=== PATIENT | male | born 1965 | race African-American/Black ===

== ENCOUNTER 2022-12-05 16:09 | Emergency (ER) | payer OTHER ==
[~2022-12-05] VITALS: Ht 182.9 cm; Wt 73.9 kg
[2022-12-05 16:42] VITALS: BP 103/77
[2022-12-05 16:46] LABS: BASO% 0.7 % (0-3); HEMATOCRIT 41.5 % (39.0-50.0); HEMOGLOBIN 12.9 g/dl (14.0-18.0); IMMATURE GRANULOCYTES 0.2 % (0.0-5.0); MEAN CELL VOLUME 85.4 fL CALC (80.0-100.0); MEAN CORPUSCULAR HGB 26.5 pG CALC (26.0-32.0); MEAN CORPUSCULAR HGB CONC 31.1 g/dL CAL (32.0-36.0); MONO% 6.6 % (2-13); NEUT# 2.31 thou/uL (1.82-7.42); NEUT% 50.5 % (42-76); RED BLOOD COUNT 4.86 mill/uL (4.70-6.10); RED CELL DISTRI WIDTH 12.2 % (11.5-15.5)
[2022-12-05 16:55] LABS: ALBUMIN 4.2 g/dL (3.2-5.0); ALKALINE PHOSPHATASE 77 u/l (38-126); BUN 11 mg/dL (9-20); BUN/CREATININE RATIO 11 (12-20 (CALC)); CHLORIDE 108 mmol/l (95-108); ETHYL ALCOHOL 88 mg/dl (0-30); GFR FOR AFR.AMER. > 60 ML/MIN (>=60 (CALC)); GFR OTHER RACES > 60 ML/MIN (>=60 (CALC)); POTASSIUM 3.6 mmol/l (3.5-5.1); SGOT/AST 52 u/l (17-59); SODIUM 141 mmol/l (137-146); TOTAL PROTEIN 6.8 g/dL (6.3-8.2)
[2022-12-05 16:57] LABS: ANION GAP 20 (6-22 (CALC)); BILIRUBIN, TOTAL 0.2 mg/dL (0.2-1.3); CARBON DIOXIDE 17 mmol/l (22-30)
[2022-12-05 17:19] VITALS: BP 106/69
[2022-12-05] MEDS ORDERED: CEPHALEXIN500 MG PO (17:28)
[2022-12-05 17:30] VITALS: BP 116/73
[2022-12-05 17:46] VITALS: BP 121/84
[2022-12-05 18:02] VITALS: BP 121/84
== END 2022-12-05 18:18 | disposition home or self-care (01) | DRG 605 ==
LOC: ED 16:09
PROVIDERS: Family Medicine
PROC: 0HQEXZZ Repair Left Lower Arm Skin, External Approach (ICD-10-PCS; principal; 2022-12-05)
DX: S51.812A Laceration without foreign body of left forearm, initial encounter (principal); S10.91XA Abrasion of unspecified part of neck, initial encounter; T18.2XXA Foreign body in stomach, initial encounter; X78.9XXA Intentional self-harm by unspecified sharp object, initial encounter; Y92.143 Cell of prison as the place of occurrence of the external cause; X58.XXXA Exposure to other specified factors, initial encounter; Z21 Asymptomatic human immunodeficiency virus [HIV] infection status
CPT/HCPCS: J0690